=== PATIENT | female | born 1950 | race Caucasian/White ===

== ENCOUNTER 2017-01-29 19:34 | Emergency (ER) | payer OTHER ==
[~2017-01-29] VITALS: Ht 154.9 cm; Wt 79.4 kg
[2017-01-29] MEDS ORDERED: CRESTOR10 MG (20:26)
[2017-01-29] MEDS ORDERED: LISINOPRIL5 MG PO (20:26)
[2017-01-29] MEDS ORDERED: KEPPRA 500 MG500 MG (20:26)
[2017-01-29] MEDS ORDERED: GREEN TEA250 MG (20:27)
[2017-01-29] MEDS ORDERED: KRILL OIL500 MG (20:27)
[2017-01-29] MEDS ORDERED: SUPER B COMPLE150 MG (20:27)
[2017-01-29] MEDS ORDERED: VITAMIN D5000 UNI1 (20:28)
[2017-01-29] MEDS ORDERED: AMBIEN 5 MG TABL5 M1 PO (20:28)
[2017-01-29] MEDS ORDERED: MAGOX 400400 MG PO (20:28)
[2017-01-29] MEDS ORDERED: PROBIOTIC1 EAC1 PO (20:28)
[2017-01-29 22:33] VITALS: BP 157/91
== END 2017-01-29 22:35 | disposition home or self-care (01) ==
LOC: ER 19:34
DX: S61.303A Unspecified open wound of left middle finger with damage to nail, initial encounter (principal); S61.305A Unspecified open wound of left ring finger with damage to nail, initial encounter; I10 Essential (primary) hypertension; E78.00 Pure hypercholesterolemia, unspecified; Z90.89 Acquired absence of other organs; Z88.1 Allergy status to other antibiotic agents; W26.8XXA Contact with other sharp object(s), not elsewhere classified, initial encounter; Y93.89 Activity, other specified; Y92.89 Other specified places as the place of occurrence of the external cause; Y99.8 Other external cause status